=== PATIENT | female | born 1950 | race Caucasian/White ===

== ENCOUNTER → 2016-10-09 | Outpatient (CLI) | payer OTHER ==
[~2016-10-09] MED LIST: BUPR150T3 PO; VENL75TA2 PO
--- NOTE | 2016-10-09 16:23 | REP ---
LEFT FOREARM, TWO VIEWS: HISTORY: Contusion. There is no acute fracture or dislocation. There is narrowing of the 1st carpal metacarpal joint space. IMPRESSION: There is no acute fracture or dislocation. Signed by Milton Vargas MD 10/09/2016 04:24 P
== END ==
LOC: M WUC 15:25
PROVIDERS: ATTEND Physician Assistant
DX: S50.12XA Contusion of left forearm, initial encounter (principal); X58.XXXA Exposure to other specified factors, initial encounter; Y92.89 Other specified places as the place of occurrence of the external cause; Y93.89 Activity, other specified; Y99.8 Other external cause status

== ENCOUNTER → 2017-08-28 | Outpatient (REF) | payer OTHER | LOC: M LAB REF 19:46 | DX: N39.0 Urinary tract infection, site not specified (principal) ==

== ENCOUNTER → 2018-05-09 | Outpatient (REF) | payer MEDICARE, OTHER | LOC: M LAB REF 18:36 | DX: R20.2 Paresthesia of skin (principal) | CPT/HCPCS: 82607 ==